=== PATIENT | male | born 1960 | race American Indian/Alaskan Native ===

== ENCOUNTER 2018-06-21 23:13 | Emergency (ER) | payer MEDICARE ==
[2018-06-22 00:33] LABS: Basophils % (Auto) 0.8 % (0.0-1.8); Eosinophils # (Auto) 0.1 K/mm3 (0.0-0.4); Eosinophils % (Auto) 1.9 % (0.0-4.3); Hematocrit 38.2 % (35.5-45.6); Hemoglobin 13.5 gm/dl (11.8-15.2); Lymphocytes # (Auto) 1.2 K/mm3 (1.2-5.4); Lymphocytes % (Auto) 40.9 % (13.4-35.0); Mean Corpuscular HGB Conc 35 % (32-34); Mean Corpuscular Hemoglobin 31 pg (28-32); Mean Corpuscular Volume 87 fl (84-94); Monocytes # (Auto) 0.4 K/mm3 (0.0-0.8); Monocytes % (Auto) 12.3 % (0.0-7.3); Platelet Count 190 K/mm3 (140-440); Red Blood Count 4.42 M/mm3 (3.65-5.03)
[2018-06-22 01:05] LABS: Alanine Aminotransferase 7 units/L (7-56); Albumin 4.7 g/dL (3.9-5); BUN/Creatinine Ratio 11; Blood Urea Nitrogen 9 mg/dL (9-20); Calcium 9.5 mg/dL (8.4-10.2); Hemolysis Index 10
[2018-06-22 03:28] VITALS: BP 140/91
[2018-06-22] MEDS ORDERED: MOTRIN PO ONE (04:00)
[2018-06-22] MEDS ORDERED: DILAUDID IM ONE (04:00)
--- NOTE | 2018-06-22 04:00 | Emergency Department Report ---
ED General Adult HPI - General Chief complaint: Pain General Stated complaint: BACK/RIB PAIN/BONE CANCER Time Seen by Provider: 06/22/18 03:54 Source: patient, RN notes reviewed, old records reviewed Mode of arrival: Ambulatory Limitations: No Limitations - History of Present Illness Initial comments: His is an unfortunate 57-year-old male, unknown to me previously. Has a past medical history of prostate cancer, suggested to be metastatic on a recent bone scan. He also has a history of tobacco and alcohol abuse. He is not currently on medical therapy for his prostate cancer. He has been seen by Dr. Huston of oncology, please see her consultation from 05/03/2018. Patient reports that his current oncologist is Dr. best at [facility]. Impression presents to the ER with complaints of bony rib pain and lower back pain, suggestive of his previous metastatic pain. His pain is sharp, increases with palpation and decreases with rest. He denies fevers, chills, chest pain, shortness of breath, urinary symptoms, bladder or bowel retention/incontinence. Patient had a CT angiogram of the chest performed last month which was negative for pulmonary embolus. -: Gradual Location: back Quality: burning, aching Consistency: intermittent Improves with: medication, rest Worsens with: movement Associated Symptoms: malaise, weakness. denies: confusion, chest pain, cough, diaphoresis, fever/chills, headaches, loss of appetite, nausea/vomiting, shortness of breath, syncope - Related Data Previous Rx's Medication Instructions Recorded Last Taken Type Folic Acid 1 tab PO QDAY #30 tab 06/22/18 Unknown Rx Ibuprofen [Motrin] 600 mg PO Q8H PRN #30 tablet 06/22/18 Unknown Rx Multivitamin Tab [Multiple Vitamin 1 each PO ONCE #30 tablet 06/22/18 Unknown Rx TAB (Theragran)] Thiamine [Vitamin B-1] 100 mg PO QDAY #15 tablet 06/22/18 Unknown Rx amLODIPine [Norvasc] 10 mg PO QDAY #30 tablet 06/22/18 Unknown Rx oxyCODONE /ACETAMINOPHEN [Percocet 1 tab PO Q6HR PRN #15 tablet 06/22/18 Unknown Rx 5/325 mg] Allergies Allergy/AdvReac Type Severity Reaction Status Date / Time No Known Allergies Allergy Verified 06/22/18 00:04 ED Review of Systems ROS: Stated complaint: BACK/RIB PAIN/BONE CANCER Other details as noted in HPI Constitutional: malaise. denies: diaphoresis Eyes: denies: eye discharge ENT: denies: epistaxis Respiratory: denies: cough Cardiovascular: denies: chest pain Gastrointestinal: denies: abdominal pain Genitourinary: denies: dysuria Musculoskeletal: back pain, arthralgia, myalgia Skin: denies: lesions Neurological: weakness Psychiatric: anxiety ED Past Medical Hx - Past Medical History Hx Hypertension: Yes Hx Congestive Heart Failure: No Hx Diabetes: No Hx Asthma: No Hx COPD: No Hx HIV: No Additional medical history: bone CA, prostate CA/2012 - Surgical History Past Surgical History?: No - Social History Smoking Status: Current Every Day Smoker Substance Use Type: Marijuana - Medications Home Medications: Home Medications Medication Instructions Recorded Confirmed Last Taken Type Folic Acid 1 tab PO QDAY #30 tab 06/22/18 Unknown Rx Ibuprofen [Motrin] 600 mg PO Q8H PRN #30 tablet 06/22/18 Unknown Rx Multivitamin Tab [Multiple Vitamin 1 each PO ONCE #30 tablet 06/22/18 Unknown Rx TAB (Theragran)] Thiamine [Vitamin B-1] 100 mg PO QDAY #15 tablet 06/22/18 Unknown Rx amLODIPine [Norvasc] 10 mg PO QDAY #30 tablet 06/22/18 Unknown Rx oxyCODONE /ACETAMINOPHEN [Percocet 1 tab PO Q6HR PRN #15 tablet 06/22/18 Unknown Rx 5/325 mg] ED Physical Exam - General Limitations: No Limitations General appearance: alert, in no apparent distress - Head Head exam: Present: atraumatic, normocephalic - Eye Eye exam: Present: normal appearance, EOMI. Absent: nystagmus - ENT ENT exam: Present: normal exam, normal orophraynx, mucous membranes moist, normal external ear exam - Neck Neck exam: Present: normal inspection, full ROM. Absent: tenderness, meningismus - Respiratory Respiratory exam: Present: normal lung sounds bilaterally, chest wall tenderness. Absent: respiratory distress, wheezes, rales, rhonchi, stridor - Cardiovascular Cardiovascular Exam: Present: regular rate, normal rhythm. Absent: systolic murmur, diastolic murmur, rubs, gallop - GI/Abdominal GI/Abdominal exam: Present: soft, normal bowel sounds. Absent: distended, tenderness, guarding, rebound, rigid, pulsatile mass - Rectal Rectal exam: Present: deferred - Extremities Exam Extremities exam: Present: normal inspection, full ROM, normal capillary refill , other (2+ pulses noted in the bilateral upper, lower extremities. Compartments soft. No long bony tenderness. The pelvis is stable.). Absent: pedal edema, joint swelling, calf tenderness (there is no palpable cord. There is a negative Homans sign.) - Back Exam Back exam: Present: normal inspection, full ROM, paraspinal tenderness, vertebral tenderness. Absent: CVA tenderness (R) - Neurological Exam Neurological exam: Present: alert, oriented X3, CN II-XII intact, normal gait, other (Extraocular movements intact. Tongue midline. No facial droop. Facial sensation intact to light touch in the V1, V2, V3 distribution bilaterally. 5 and 5 strength in 4 extremities.. Sensation is intact to light touch in 4 extremities.). Absent: motor sensory deficit - Psychiatric Psychiatric exam: Present: normal affect, normal mood - Skin Skin exam: Present: warm, dry, intact, normal color. Absent: rash ED Course Vital Signs 06/21/18 06/22/18 06/22/18 23:18 02:12 02:16 Temperature 98.1 F Pulse Rate 72 69 73 Respiratory 16 15 17 Rate Blood Pressure 132/86 145/85 O2 Sat by Pulse 99 99 99 Oximetry 06/22/18 06/22/18 06/22/18 02:30 02:46 03:00 Temperature Pulse Rate 73 77 79 Respiratory 18 14 12 Rate Blood Pressure 140/91 145/85 112/75 O2 Sat by Pulse 99 98 96 Oximetry 06/22/18 03:16 Temperature Pulse Rate 73 Respiratory 13 Rate Blood Pressure 140/91 O2 Sat by Pulse 96 Oximetry ED Medical Decision Making - Lab Data Result diagrams: 06/22/18 00:14 06/22/18 00:14 Vital Signs 06/21/18 06/22/18 06/22/18 23:18 02:12 02:16 Temperature 98.1 F Pulse Rate 72 69 73 Respiratory 16 15 17 Rate Blood Pressure 132/86 145/85 O2 Sat by Pulse 99 99 99 Oximetry 06/22/18 06/22/18 06/22/18 02:30 02:46 03:00 Temperature Pulse Rate 73 77 79 Respiratory 18 14 12 Rate Blood Pressure 140/91 145/85 112/75 O2 Sat by Pulse 99 98 96 Oximetry 06/22/18 03:16 Temperature Pulse Rate 73 Respiratory 13 Rate Blood Pressure 140/91 O2 Sat by Pulse 96 Oximetry Lab Results 06/22/18 06/22/18 Range/Units 00:14 00:14 WBC 3.0 L (4.5-11.0) K/mm3 RBC 4.42 (3.65-5.03) M/mm3 Hgb 13.5 (11.8-15.2) gm/dl Hct 38.2 (35.5-45.6) % MCV 87 (84-94) fl MCH 31 (28-32) pg MCHC 35 H (32-34) % RDW 15.0 (13.2-15.2) % Plt Count 190 (140-440) K/mm3 Lymph % (Auto) 40.9 H (13.4-35.0) % Finney % (Auto) 12.3 H (0.0-7.3) % Eos % (Auto) 1.9 (0.0-4.3) % Baso % (Auto) 0.8 (0.0-1.8) % Lymph # 1.2 (1.2-5.4) K/mm3 Finney # 0.4 (0.0-0.8) K/mm3 Eos # 0.1 (0.0-0.4) K/mm3 Baso # 0.0 (0.0-0.1) K/mm3 Seg Neutrophils % 44.1 (40.0-70.0) % Seg Neutrophils # 1.3 L (1.8-7.7) K/mm3 Sodium 131 L (137-145) mmol/L Potassium 3.7 (3.6-5.0) mmol/L Chloride 92.6 L (98-107) mmol/L Carbon Dioxide 22 (22-30) mmol/L Anion Gap 20 mmol/L BUN 9 (9-20) mg/dL Creatinine 0.8 (0.8-1.5) mg/dL Estimated GFR > 60 ml/min BUN/Creatinine Ratio 11 % Glucose 90 (75-100) mg/dL Calcium 9.5 (8.4-10.2) mg/dL Total Bilirubin 0.40 (0.1-1.2) mg/dL AST 24 (5-40) units/L ALT 7 (7-56) units/L Alkaline Phosphatase 262 H (35-129) units/L Total Protein 7.7 (6.3-8.2) g/dL Albumin 4.7 (3.9-5) g/dL Albumin/Globulin Ratio 1.6 % - Medical Decision Making Differential diagnosis, including but not limited to: Metastatic prostate cancer , cancer pain Assessment and plan: 57-year-old male, recently admitted to this hospital, had extensive workup and evaluation including bone scan which has suggested metastatic prostate cancer. He is afebrile with reassuring vital signs, has chronic leukopenia which appears improved compared to prior values. He does not meet criteria for dressing to the hospital at this time, he appears mostly comfortable in his stretcher, and has unremarkable physical exam with the exception of reproducible musculoskeletal pain. Primary issue appears to be pain control. He is given hydromorphone and ibuprofen for pain. He'll be discharged with pain medication. He'll be instructed to follow-up with outpatient oncology, either with his private physician at [facility] or Dr Huston Critical care attestation.: If time is entered above; I have spent that time in minutes in the direct care of this critically ill patient, excluding procedure time. ED Disposition Clinical Impression: Cancer associated pain Disposition: DC-01 TO HOME OR SELFCARE Is pt being admited?: No Does the pt Need Aspirin: No Condition: Good Instructions: Prostate Cancer (GEN) Additional Instructions: Take the pain medications as needed/directed. Follow up as soon as possible with either your primary care doctor or oncologist for further evaluation and treatment of presumed metastatic prostate cancer. If taking the Percocet for pain, do not combine alcohol, and do not drive or make important decisions. Return to the ER right away with ear pain, worsened pain, migration of pain, fevers, chills, lethargy, irritability, projectile vomiting, change in mental status, confusion, inability to tolerate liquid feeds. Referrals: BLAINE ARRIAGA MD [Primary Care Provider] - 3-5 Days GABRIEL HUSTON MD [Staff Physician] - 3-5 Days
== END 2018-06-22 05:36 | disposition home or self-care (01) ==
LOC: ED 23:13
DX: G89.3 Neoplasm related pain (acute) (chronic) (principal); R07.81 Pleurodynia; M54.5 Low back pain; C61 Malignant neoplasm of prostate; C79.51 Secondary malignant neoplasm of bone; I10 Essential (primary) hypertension; F17.200 Nicotine dependence, unspecified, uncomplicated; F12.10 Cannabis abuse, uncomplicated
CPT/HCPCS: 36415; 80053; 85025; 96372; 99283; J1170

== ENCOUNTER 2019-05-21 20:18 | Observation (INO) | payer MEDICARE ==
--- NOTE | 2019-05-21 21:08 | Emergency Department Report ---
HPI - General Chief Complaint: Recheck/Abnormal Lab/Rx Time Seen by Provider: 05/21/19 20:53 - HPI HPI: 58-year-old -[place] male presents to the emergency department via EMS from [facility] secondary to the report of low hemoglobin and hematocrit. Patient says that he was told his "blood count was about 3." He has a history of prostate cancer with secondary metastasis to the bone and it appears that it has affected his spine. 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 He is able to answer some questions appropriately but is confused about time, and is the president. Overall the patient says that he feels "fine." His primary care physician is listed as Dr. Rosemary Moreno and Dr. Misha Elder. He says that his oncologist is Dr. Corado, but he denies any current chemotherapy or radiation treatments. He allegedly has an appointment with his oncologist this coming Tuesday. Patient says it is 1998 and [place] is currently the president. ED Past Medical Hx - Past Medical History Hx Hypertension: Yes Hx Congestive Heart Failure: No Hx Diabetes: No Hx Asthma: No Hx COPD: No Hx HIV: No Additional medical history: bone CA, prostate CA/2012 - Social History Smoking Status: Never Smoker Substance Use Type: None - Medications Home Medications: Home Medications Medication Instructions Recorded Confirmed Last Taken Type Folic Acid 1 tab PO QDAY #30 tab 06/22/18 Unknown Rx Ibuprofen [Motrin] 600 mg PO Q8H PRN #30 tablet 06/22/18 Unknown Rx Multivitamin Tab [Multiple Vitamin 1 each PO ONCE #30 tablet 06/22/18 Unknown Rx TAB (Theragran)] Thiamine [Vitamin B-1] 100 mg PO QDAY #15 tablet 06/22/18 Unknown Rx amLODIPine [Norvasc] 10 mg PO QDAY #30 tablet 06/22/18 Unknown Rx oxyCODONE /ACETAMINOPHEN [Percocet 1 tab PO Q6HR PRN #15 tablet 06/22/18 Unknown Rx 5/325 mg] ED Review of Systems ROS: Stated complaint: ABNORMAL LABS Other details as noted in HPI Comment: All other systems reviewed and negative Constitutional: denies: chills, fever Eyes: denies: eye pain, vision change ENT: denies: ear pain, throat pain Respiratory: denies: cough, shortness of breath Cardiovascular: denies: chest pain, palpitations Gastrointestinal: denies: abdominal pain, vomiting Genitourinary: denies: dysuria, discharge Musculoskeletal: denies: back pain, arthralgia Skin: denies: rash, lesions Neurological: confusion. denies: headache Physical Exam - Physical Exam Vital Signs: Vital Signs 05/21/19 20:55 Temperature 98.1 F Physical Exam: GENERAL: The patient is well-developed well-nourished. HENT: Normocephalic. Atraumatic. Patient has moist mucous membranes. EYES: Extraocular motions are intact. Pupils equal reactive to light bilate rally. NECK: Supple. Trachea is midline. CHEST/LUNGS: Clear to auscultation. There is no respiratory distress noted. HEART/CARDIOVASCULAR: Regular. There is no tachycardia. There is no murmur. ABDOMEN: Abdomen is soft, nontender. Patient has normal bowel sounds. There is no abdominal distention. SKIN: Patient has some stage I to 2 sacral decubitus ulcers. NEURO: The patient is awake, alert. The patient is cooperative with examination but is confused to the date and the current president. The patient has normal speech. MUSCULOSKELETAL: There is no tenderness to palpation. Chronic lower extremity paraplegia. RECTAL: No gross blood. Stool negative on guaiac testing. ED Course Vital Signs 05/21/19 20:55 Temperature 98.1 F ED Medical Decision Making - Lab Data Result diagrams: 05/21/19 21:12 05/21/19 21:12 - EKG Data -: EKG Interpreted by Il EKG shows normal: sinus rhythm, axis, intervals, QRS complexes, ST-T waves Rate: normal - EKG Data When compared to previous EKG there are: no significant change Interpretation: normal EKG, unchanged when compared t (05/03/18) - Radiology Data Radiology results: report reviewed PROCEDURE: CT HEAD/BRAIN WO CON TECHNIQUE: Computerized tomography of the head was performed without contrast material. CT DOSE LENGTH PRODUCT: 805.4 mGycm HISTORY: Altered Mental Status COMPARISONS: None . FINDINGS: Brain: Brain density appears normal. No evidence of intracranial hemorrhage. No parenchymal hemorrhage, mass lesions or mass effect are seen. No abnormal extra-axial fluid collects or masses are seen. Ventricles: Ventricles are normal size and are midline. Bone Windows: No evidence of skull fracture. There is mild deformity medial wall the right orbit. Small portion of the medial wall is displaced into one of the ethmoid air cells suggesting previous fracture. There is no edematous changes that would suggest an acute fracture. Paranasal sinuses: Mild mucosal thickening visualized posteriorly in the sphenoid sinuses. Visualized paranasal sinuses otherwise are clear. Mastoid air cells: Clear. IMPRESSION: No evidence of acute or focal intracranial abnormality. Mild paranasal sinus disease as described. Mild deformity medial wall right orbit as described above. This document is electronically signed by Merlin Terrazas MD., May 21 2019 10:50:10 PM ET Transcribed By: DOMINIC Dictated By: MERLIN TERRAZAS MD Electronically Authenticated By: MERLIN TERRAZAS MD Signed Date/Time: 05/21/19 2246 - Medical Decision Making This patient was sent in by his half-way after he had some recent blood work that showed severe anemia. This was confirmed here with a hemoglobin of 4.7. It appears normocytic. No obvious source of bleeding. Guaiac negative. Due to the history of prostate and bone cancer, along with his confusion to the date a nd current president, my plan was to do a CT scan of the head to look for metastasis. The patient also had some blood ordered for transfusion. However, at first, the patient was refusing any further imaging, blood transfusion, and basically any further examination or treatment. I spoke with the patient's sister, Patricia, who was able to talk to the patient and convince him to be compliant with further evaluation and treatment, and the patient has been. CT of the head did not show any bleed, shift, mass, ischemia, or any other acute process. 3 units of packed red blood cells up in order to start. Patient will be admitted to the hospital for further evaluation and treatment was excepted f or admission by the hospitalist, Dr. Rosales. - Differential Diagnosis GI bleed, anemia of chronic kidney disease, chemotherapy related Critical Care Time: Yes Critical care time in (mins) excluding proc time.: 35 Critical care attestation.: If time is entered above; I have spent that time in minutes in the direct care of this critically ill patient, excluding procedure time. Critical care time w as spent on this patient during his initial evaluation, multiple re-evaluations, ordering and interpretation of labs and imaging, ordering of blood for transfusion. Multiple discussion with the patient and his family. Critical Care Time: 35 minutes ED Disposition Clinical Impression: Anemia requiring transfusions, Normocytic anemia, History of prostate cancer, History of cancer metastatic to bone, Acute renal insufficiency, Elevated troponin Disposition: OP ADMIT IP TO THIS HOSP Is pt being admited?: Yes Condition: Serious Referrals: ANA MORENO MD [Primary Care Provider] - 3-5 Days Time of Disposition: 23:44
[2019-05-21 21:41] LABS: Basophils % (Auto) 0.9 % (0.0-1.8); Eosinophils % (Auto) 1.1 % (0.0-4.3); Lymphocytes # (Auto) 0.6 K/mm3 (1.2-5.4); Lymphocytes % (Auto) 22.7 % (13.4-35.0); Mean Corpuscular HGB Conc 33 % (32-34); Mean Corpuscular Volume 88 fl (84-94); Monocytes # (Auto) 0.2 K/mm3 (0.0-0.8); Monocytes % (Auto) 6.5 % (0.0-7.3); Platelet Count 100 K/mm3 (140-440); Red Blood Count 1.65 M/mm3 (3.65-5.03)
[2019-05-21 21:43] LABS: Hematocrit 14.5 % (35.5-45.6); Hemoglobin 4.7 gm/dl (11.8-15.2); Red Cell Distribution Width 21.2 % (13.2-15.2)
[2019-05-21 21:45] LABS: INR 1.2 (0.87-1.13)
[2019-05-21 21:46] LABS: Partial Thromboplastin Time 28.2 Sec. (24.2-36.6)
[2019-05-21] MEDS ORDERED: NACL 0.9% 500 ML 500 ML IV ONE (22:08)
[2019-05-21 22:16] LABS: Alanine Aminotransferase 10 units/L (7-56); Albumin 3.7 g/dL (3.9-5); BUN/Creatinine Ratio 14; Blood Urea Nitrogen 24 mg/dL (9-20); Calcium 9.2 mg/dL (8.4-10.2); Hemolysis Index 0
--- NOTE | 2019-05-21 22:51 | Cat Scan Report ---
PROCEDURE: CT HEAD/BRAIN WO CON TECHNIQUE: Computerized tomography of the head was performed without contrast material. CT DOSE LENGTH PRODUCT: 805.4 mGycm HISTORY: Altered Mental Status COMPARISONS: None . FINDINGS: Brain: Brain density appears normal. No evidence of intracranial hemorrhage. No parenchymal hemorr brandan, mass lesions or mass effect are seen. No abnormal extra-axial fluid collects or masses are see n. Ventricles: Ventricles are normal size and are midline. Bone Windows: No evidence of skull fracture. There is mild deformity medial wall the right orbit. Sma ll portion of the medial wall is displaced into one of the ethmoid air cells suggesting previous frac ture. There is no edematous changes that would suggest an acute fracture. Paranasal sinuses: Mild mucosal thickening visualized posteriorly in the sphenoid sinuses. Visualized paranasal sinuses otherwise are clear. Mastoid air cells: Clear. IMPRESSION: No evidence of acute or focal intracranial abnormality. Mild paranasal sinus disease as described. Mild deformity medial wall right orbit as described above. This document is electronically signed by Merlin Pereira MD., May 21 2019 10:50:10 PM ET
--- NOTE | 2019-05-21 23:22 | History and Physical Report ---
<SATISH ROMO - Last Filed: 05/22/19 04:50> History of Present Illness Date of examination: 05/21/19 Date of admission: 05/21/2019 Chief complaint: Low H&H, Extreme tiredness History of present illness: Patient is a 58-year-old male with PMHx of metastatic prostate CA to the bone, (currently on oral chemotherapy, per pt) who was brought to the by EMS from a nursing care facility for low hemoglobin and hematocrit. Patient reports hr feel tired all the time, he states that he has not had an appetite and showed no interest eating the past few days. Pt also complains of right tight pain, he states that he had been taking some medication at the half-way for the pain with minimal relief. Patient reported to the ER physician that his H&H has been very low, In the ER the H&H was repeated which was 4.7 and 14.5, patient reports low energy, change in appetite, he denies fevers, denies headache, denies chills, denies dizziness. Patient was started on blood transfusion and admitted for further follow-up. Past History Past Medical History: other (history of alcohol abuse, prostate CA) Past Surgical History: No surgical history Social history: no significant social history, smoking, alcohol abuse (quit years ago) Family history: no significant family history Medications and Allergies Allergies Allergy/AdvReac Type Severity Reaction Status Date / Time No Known Allergies Allergy Verified 06/22/18 00:04 Home Medications Medication Instructions Recorded Confirmed Last Taken Type Folic Acid 1 tab PO QDAY #30 tab 06/22/18 Unknown Rx Ibuprofen [Motrin] 600 mg PO Q8H PRN #30 tablet 06/22/18 Unknown Rx Multivitamin Tab [Multiple Vitamin 1 each PO ONCE #30 tablet 06/22/18 Unknown Rx TAB (Theragran)] Thiamine [Vitamin B-1] 100 mg PO QDAY #15 tablet 06/22/18 Unknown Rx amLODIPine [Norvasc] 10 mg PO QDAY #30 tablet 06/22/18 Unknown Rx oxyCODONE /ACETAMINOPHEN [Percocet 1 tab PO Q6HR PRN #15 tablet 06/22/18 Unknown Rx 5/325 mg] Review of Systems Musculoskeletal: morning stiffness, muscle cramps Exam - Constitutional Vitals: Temp Pulse Resp BP Pulse Ox 98.1 F 105/60 96 05/21/19 20:55 05/21/19 22:15 05/21/19 21:45 General appearance: Present: mild distress - EENT Eyes: Present: EOM intact ENT: hearing intact - Neck Neck: Present: normal ROM - Respiratory Respiratory effort: normal Respiratory: bilateral: CTA - Cardiovascular Rhythm: regular Heart Sounds: Present: S1 & S2 - Extremities Extremities: no ischemia, No edema Peripheral Pulses: within normal limits - Abdominal General gastrointestinal: Present: deferred Male genitourinary: Present: deferred - Rectal Rectal Exam: deferred - Integumentary Integumentary: Present: warm, dry - Musculoskeletal Musculoskeletal: generalized weakness, other (quadriplegia) - Psychiatric Psychiatric: cooperative Results - Labs CBC & Chem 7: 05/21/19 21:12 05/21/19 21:12 Labs: Laboratory Last Values WBC 2.7 K/mm3 (4.5-11.0) L 05/21/19 21:12 RBC 1.65 M/mm3 (3.65-5.03) L 05/21/19 21:12 Hgb 4.7 gm/dl (11.8-15.2) L* 05/21/19 21:12 Hct 14.5 % (35.5-45.6) L* 05/21/19 21:12 MCV 88 fl (84-94) 05/21/19 21:12 MCH 29 pg (28-32) 05/21/19 21:12 MCHC 33 % (32-34) 05/21/19 21:12 RDW 21.2 % (13.2-15.2) H 05/21/19 21:12 Plt Count 100 K/mm3 (140-440) L 05/21/19 21:12 Lymph % (Auto) 22.7 % (13.4-35.0) 05/21/19 21:12 Nolan % (Auto) 6.5 % (0.0-7.3) 05/21/19 21:12 Eos % (Auto) 1.1 % (0.0-4.3) 05/21/19 21:12 Baso % (Auto) 0.9 % (0.0-1.8) 05/21/19 21:12 Lymph # 0.6 K/mm3 (1.2-5.4) L 05/21/19 21:12 Nolan # 0.2 K/mm3 (0.0-0.8) 05/21/19 21:12 Eos # 0.0 K/mm3 (0.0-0.4) 05/21/19 21:12 Baso # 0.0 K/mm3 (0.0-0.1) 05/21/19 21:12 Seg Neutrophils % 68.8 % (40.0-70.0) 05/21/19 21:12 Seg Neutrophils # 1.8 K/mm3 (1.8-7.7) 05/21/19 21:12 PT 14.9 Sec. (12.2-14.9) 05/21/19 21:12 INR 1.20 (0.87-1.13) H 05/21/19 21:12 APTT 28.2 Sec. (24.2-36.6) 05/21/19 21:12 Sodium 134 mmol/L (137-145) L 05/21/19 21:12 Potassium 4.2 mmol/L (3.6-5.0) 05/21/19 21:12 Chloride 98.4 mmol/L (98-107) 05/21/19 21:12 Carbon Dioxide 22 mmol/L (22-30) 05/21/19 21:12 18 mmol/L 05/21/19 21:12 BUN 24 mg/dL (9-20) H 05/21/19 21:12 1.7 mg/dL (0.8-1.5) H 05/21/19 21:12 Estimated GFR 50 ml/min 05/21/19 21:12 14 % 05/21/19 21:12 Glucose 106 mg/dL (75-100) H 05/21/19 21:12 Calcium 9.2 mg/dL (8.4-10.2) 05/21/19 21:12 0.70 mg/dL (0.1-1.2) 05/21/19 21:12 AST 46 units/L (5-40) H 05/21/19 21:12 ALT 10 units/L (7-56) 05/21/19 21:12 1051 units/L (35-129) H 05/21/19 21:12 < 10.0 umol/L (25-60) L 05/21/19 21:12 0.073 ng/mL (0.00-0.029) H 05/21/19 21:12 6.5 g/dL (6.3-8.2) 05/21/19 21:12 3.7 g/dL (3.9-5) L 05/21/19 21:12 1.3 % 05/21/19 21:12 TSH 5.710 mlU/mL (0.270-4.200) H 05/21/19 21:12 Plasma/Serum Alcohol < 0.01 % (0-0.07) 05/21/19 21:12 Blood Type O POSITIVE 05/21/19 21:16 Antibody Screen Negative 05/21/19 21:16 Crossmatch See Detail 05/21/19 21:16 Assessment and Plan Assessment and plan: 1. Metastatic prostate Ca to bone 2. Acute blood loss anemia 3. Pancytopenia 4. History of spinal compression surgery 5. Functional quadriplegia (due to spinal surgery) 6. CKD/TOÑO Plan: Patient is admitted for blood transfusion Sarted on PRBCs Repeat H&H after blood transfusion Ensure 3 times a day with meals Consult home oncology for evaluation IV fluid for hydration/renal perfusion No DVT prophylaxis due to low H&H Plan was discussed with patient voiced understanding Patient's condition and plan of care discussed with the assessment Advance Directives: Yes Contraindication Mechanical VTE Prophylaxis: Contraindicated Plan of care discussed with patient/family: Yes <JUNIE GILLIAM - Last Filed: 05/22/19 06:39> History of Present Illness Date of admission: 05/21/19 23:29 Medications and Allergies Active Meds: Active Medications Acetaminophen (Tylenol) 650 mg PO Q4H PRN PRN Reason: Pain MILD(1-3)/Fever >100.5/ARZOLA Amlodipine Besylate (Norvasc) 10 mg PO QDAY [facility] Folic Acid (Folvite) 1 mg PO DAILY [facility] Sodium Chloride (Nacl 0.9% 1000 Ml) 1,000 mls @ 75 mls/hr IV DIRECT ADRIAN Last Admin: 05/22/19 04:09 Dose: 75 mls/hr Documented by: Ibuprofen (Ibuprofen) 600 mg PO Q8H PRN PRN Reason: Pain Multivitamins (Theragran Tab) 1 each PO DAILY [facility] Ondansetron HCl (Zofran) 4 mg IV Q8H PRN PRN Reason: Nausea And Vomiting Oxycodone/Acetaminophen (Percocet 5/325) 1 tab PO Q6HR PRN PRN Reason: Pain Sodium Chloride (Sodium Chloride Flush Syringe 10 Ml) 10 ml IV BID [facility] Sodium Chloride (Sodium Chloride Flush Syringe 10 Ml) 10 ml IV PRN PRN PRN Reason: LINE FLUSH Thiamine HCl (Vitamin B-1) 100 mg PO QDAY [facility] Exam - Constitutional Vitals: Temp Pulse Resp BP Pulse Ox 98.5 F 79 18 100/55 96 05/22/19 06:24 05/22/19 06:24 05/22/19 06:24 05/22/19 06:24 05/22/19 06:24 Results - Labs CBC & Chem 7: 05/21/19 21:12 05/21/19 21:12 Labs: Laboratory Last Values WBC 2.7 K/mm3 (4.5-11.0) L 05/21/19 21:12 RBC 1.65 M/mm3 (3.65-5.03) L 05/21/19 21:12 Hgb 4.7 gm/dl (11.8-15.2) L* 05/21/19 21:12 Hct 14.5 % (35.5-45.6) L* 05/21/19 21:12 MCV 88 fl (84-94) 05/21/19 21:12 MCH 29 pg (28-32) 05/21/19 21:12 MCHC 33 % (32-34) 05/21/19 21:12 RDW 21.2 % (13.2-15.2) H 05/21/19 21:12 Plt Count 100 K/mm3 (140-440) L 05/21/19 21:12 Lymph % (Auto) 22.7 % (13.4-35.0) 05/21/19 21:12 Nolan % (Auto) 6.5 % (0.0-7.3) 05/21/19 21:12 Eos % (Auto) 1.1 % (0.0-4.3) 05/21/19 21:12 Baso % (Auto) 0.9 % (0.0-1.8) 05/21/19 21:12 Lymph # 0.6 K/mm3 (1.2-5.4) L 05/21/19 21:12 Nolan # 0.2 K/mm3 (0.0-0.8) 05/21/19 21:12 Eos # 0.0 K/mm3 (0.0-0.4) 05/21/19 21:12 Baso # 0.0 K/mm3 (0.0-0.1) 05/21/19 21:12 Seg Neutrophils % 68.8 % (40.0-70.0) 05/21/19 21:12 Seg Neutrophils # 1.8 K/mm3 (1.8-7.7) 05/21/19 21:12 PT 14.9 Sec. (12.2-14.9) 05/21/19 21:12 INR 1.20 (0.87-1.13) H 05/21/19 21:12 APTT 28.2 Sec. (24.2-36.6) 05/21/19 21:12 Sodium 134 mmol/L (137-145) L 05/21/19 21:12 Potassium 4.2 mmol/L (3.6-5.0) 05/21/19 21:12 Chloride 98.4 mmol/L (98-107) 05/21/19 21:12 Carbon Dioxide 22 mmol/L (22-30) 05/21/19 21:12 18 mmol/L 05/21/19 21:12 BUN 24 mg/dL (9-20) H 05/21/19 21:12 1.7 mg/dL (0.8-1.5) H 05/21/19 21:12 Estimated GFR 50 ml/min 05/21/19 21:12 14 % 05/21/19 21:12 Glucose 106 mg/dL (75-100) H 05/21/19 21:12 Calcium 9.2 mg/dL (8.4-10.2) 05/21/19 21:12 0.70 mg/dL (0.1-1.2) 05/21/19 21:12 AST 46 units/L (5-40) H 05/21/19 21:12 ALT 10 units/L (7-56) 05/21/19 21:12 1051 units/L (35-129) H 05/21/19 21:12 < 10.0 umol/L (25-60) L 05/21/19 21:12 0.073 ng/mL (0.00-0.029) H 05/21/19 21:12 6.5 g/dL (6.3-8.2) 05/21/19 21:12 3.7 g/dL (3.9-5) L 05/21/19 21:12 1.3 % 05/21/19 21:12 TSH 5.710 mlU/mL (0.270-4.200) H 05/21/19 21:12 Plasma/Serum Alcohol < 0.01 % (0-0.07) 05/21/19 21:12 Blood Type O POSITIVE 05/21/19 21:16 Antibody Screen Negative 05/21/19 21:16 Crossmatch See Detail 05/21/19 21:16 Assessment and Plan Assessment and plan: This 58-year-old man with a history of metastatic prostate cancer, quadriplegic, history of cord compression, anemia was sent to the emergency room for a normal hemoglobin found on labs at the half-way. He denies any bleeding, stool is brown with heme-negative, as he is back about cells
[2019-05-21] MEDS ORDERED: SODIUM CHLORIDE FLUSH SYRINGE 10 ML IV PRN (23:24)
[2019-05-21] MEDS ORDERED: TYLENOL PO PRN (23:24)
[2019-05-21] MEDS ORDERED: ZOFRAN IV PRN (23:24)
[2019-05-21] MEDS ORDERED: NACL 0.9% 1000 ML 1,000 ML IV SCH (23:45)
[2019-05-22] MEDS ORDERED: IBUPROFEN PO PRN (04:51)
[2019-05-22 08:57] LABS: Bacteria,Urine 1+ /HPF (Negative); Bilirubin,Urine NEG (Negative); Blood,Urine SM (Negative); Color,Urine Yellow (Yellow); Urobilinogen,Urine < 2.0 mg/dL (<2.0)
[2019-05-22] MEDS ORDERED: NON-FORMULARY (Folic Acid [Folic Acid] 1 TAB) PO SCH (10:00)
[2019-05-22] MEDS: NORVASC PO SCH (10:25)
[2019-05-22] MEDS: FOLVITE PO SCH (10:25)
[2019-05-22] MEDS: SODIUM CHLORIDE FLUSH SYRINGE 10 ML IV SCH ×2 (10:27→22:50)
[2019-05-22] MEDS: THERAGRAN Tab PO SCH (10:29)
[2019-05-22] MEDS: VITAMIN B-1 PO SCH (10:29)
[2019-05-22] MEDS: PERCOCET 5/325 PO PRN (12:35)
[2019-05-22 15:17] LABS: Basophils % (Auto) 1.3 % (0.0-1.8); Eosinophils % (Auto) 1.1 % (0.0-4.3); Hematocrit 22.2 % (35.5-45.6); Hemoglobin 7.7 gm/dl (11.8-15.2); Lymphocytes # (Auto) 0.8 K/mm3 (1.2-5.4); Lymphocytes % (Auto) 26.2 % (13.4-35.0); Mean Corpuscular HGB Conc 35 % (32-34); Mean Corpuscular Volume 87 fl (84-94); Monocytes # (Auto) 0.3 K/mm3 (0.0-0.8); Monocytes % (Auto) 9.6 % (0.0-7.3); Red Blood Count 2.56 M/mm3 (3.65-5.03); Red Cell Distribution Width 17.4 % (13.2-15.2)
[2019-05-22 15:30] LABS: Platelet Count 96 K/mm3 (140-440)
[2019-05-22 20:12] LABS: Chol/HDL Ratio 10.85 %; HDL Cholesterol 20 mg/dL (40-59); LDL Cholesterol,Direct TNR mg/dL (50-130)
[2019-05-23] MEDS: PERCOCET 5/325 PO PRN ×2 (00:19→08:39)
[2019-05-23] MEDS: THERAGRAN Tab PO SCH (09:14)
[2019-05-23] MEDS: NORVASC PO SCH (09:14)
[2019-05-23] MEDS: FOLVITE PO SCH (09:14)
[2019-05-23] MEDS: VITAMIN B-1 PO SCH (09:14)
[2019-05-23] MEDS: SODIUM CHLORIDE FLUSH SYRINGE 10 ML IV SCH (09:15)
--- NOTE | 2019-05-23 12:31 | Progress Note ---
Assessment and Plan 1. Metastatic prostate Ca to bone 2. Acute blood loss anemia 3. Pancytopenia 4. History of spinal compression surgery 5. Functional quadriplegia (due to spinal surgery) 6. CKD/TOÑO Plan: Patient is admitted for blood transfusion Transfused Repeat H&H after blood transfusion Ensure 3 times a day with meals Consult oncology for evaluation IV fluid for hydration/renal perfusion No DVT prophylaxis due to low platelet count Plan was discussed with patient voiced understanding Patient's condition and plan of care discussed with the assessment Advance Directives: Yes Contraindication Mechanical VTE Prophylaxis: Contraindicated Plan of care discussed with patient/family: Yes Subjective Date of service: 05/22/19 Objective - Constitutional Vitals: Vital Signs - 12hr 05/23/19 05/23/19 04:00 04:49 Temperature 98.6 F Pulse Rate 89 Respiratory 18 16 Rate Blood Pressure 107/63 O2 Sat by Pulse 98 Oximetry General appearance: Present: no acute distress, well-nourished - EENT Eyes: PERRL, EOM intact ENT: hearing intact, clear oral mucosa Ears: bilateral: normal - Neck Neck: supple, normal ROM - Respiratory Respiratory effort: normal Respiratory: bilateral: CTA - Breasts Breasts: normal - Cardiovascular Rhythm: regular Heart Sounds: Present: S1 & S2. Absent: gallop, rub Extremities: pulses intact, No edema, normal color, Full ROM - Gastrointestinal General gastrointestinal: Present: soft, non-tender, non-distended, normal bowel sounds - Genitourinary Male genitourinary: normal - Integumentary Integumentary: clear, warm, dry - Musculoskeletal Musculoskeletal: 1, strength equal bilaterally - Neurologic Neurologic: moves all extremities - Psychiatric Psychiatric: memory intact, appropriate mood/affect, intact judgment & insight - Labs CBC & Chem 7: 05/22/19 14:59 05/21/19 21:12 Labs: Abnormal lab results 05/21/19 05/22/19 Range/Units 21:12 14:59 WBC 3.1 L (4.5-11.0) K/mm3 RBC 2.56 L (3.65-5.03) M/mm3 Hgb 7.7 L D (11.8-15.2) gm/dl Hct 22.2 L D (35.5-45.6) % MCHC 35 H (32-34) % RDW 17.4 H (13.2-15.2) % Plt Count 96 L (140-440) K/mm3 Peach % (Auto) 9.6 H (0.0-7.3) % Lymph # 0.8 L (1.2-5.4) K/mm3 Triglycerides 502 H (2-149) mg/dL Cholesterol 217 H (50-199) mg/dL HDL Cholesterol 20 L (40-59) mg/dL
--- NOTE | 2019-05-23 12:40 | Discharge Summary ---
Providers - Providers Date of Admission: 05/21/19 23:29 Date of discharge: 05/23/19 Attending physician: LISBET OSMAN 05/22/19 11:33 Consult to Wound/ET Nurse [CONS] Routine Reason For Exam: wound eval Primary care physician: ANA MORENO Hospitalization Condition: Serious Hospital course: Patient is a 58-year-old male with PMHx of metastatic prostate CA to the bone, (currently on oral chemotherapy, per pt) who was brought to the by EMS from a nursing care facility for low hemoglobin and hematocrit.In the ER the H&H was repeated which was 4.7 and 14.5, patient reports low energy, Change in appetite, he denies fevers, denies headache, denies chills, denies dizziness. Patient feels tired all the time, he states that he has not had an appetite and showed no interest eating the past few days. Past History Past Medical History: other (history of alcohol abuse, prostate CA) Past Surgical History: No surgical history Social history: no significant social history, smoking, alcohol abuse (quit years ago) Family history: no significant family history 1. Metastatic prostate Ca to bone--Palliative care--Sees oncologist as outpatient 2. Acute blood loss anemia---Transfused 3. Pancytopenia--Mild 4. History of spinal compression surgery 5. Functional quadriplegia (due to spinal surgery)---PT as outpatient 6. CKD/TOÑO Plan: Patient is admitted for blood transfusion Sarted on PRBCs---transfused Repeat H&H ---7.7/22.2 Ensure 3 times a day with meals Consult home oncology for evaluation IV fluid for hydration/renal perfusion No DVT prophylaxis due to low H&H Plan was discussed with patient voiced understanding Patient's condition and plan of care discussed with the assessment Advance Directives: Yes Contraindication Mechanical VTE Prophylaxis: Contraindicated Plan of care discussed with patient/family: Yes Disposition: DC/[place]-03 [facility] CERT Core Measure Documentation - Palliative Care Palliative Care/ Comfort Measures: Not Applicable - Core Measures Any of the following diagnoses?: none Exam - Constitutional Vitals: Temp Pulse Resp BP Pulse Ox 98.6 F 89 16 107/63 98 05/23/19 04:49 05/23/19 04:49 05/23/19 04:49 05/23/19 04:49 05/23/19 04:49 General appearance: Present: no acute distress, well-nourished - EENT Eyes: Present: PERRL ENT: hearing intact, clear oral mucosa - Neck Neck: Present: supple, normal ROM - Respiratory Respiratory effort: normal Respiratory: bilateral: CTA - Cardiovascular Heart rate: 78 Rhythm: regular Heart Sounds: Present: S1 & S2. Absent: rub, click - Extremities Extremities: no ischemia, pulses intact, pulses symmetrical, No edema Peripheral Pulses: within normal limits - Abdominal General gastrointestinal: Present: soft, non-tender, non-distended, normal bowel sounds Male genitourinary: Present: normal - Rectal Rectal Exam: deferred - Integumentary Integumentary: Present: clear, warm, dry - Musculoskeletal Musculoskeletal: gait normal, strength equal bilaterally - Psychiatric Psychiatric: appropriate mood/affect, intact judgment & insight - Neurologic Neurologic: CNII-XII intact, moves all extremities Plan Weight Bearing Status: Weight Bear as Tolerated Diet: low fat, low cholesterol, low salt Follow up with: ANA MORENO MD [Primary Care Provider] - 3-5 Days
[2019-05-23] MEDS ORDERED: DILAUDID IV PRN (12:48)
[2019-05-23 13:28] VITALS: BP 117/71
== END 2019-05-23 15:57 ==
LOC: ED 20:18 → 3A 23:29
PROVIDERS: ADMIT Internal Medicine; ATTEND Internal Medicine
DX: C79.51 Secondary malignant neoplasm of bone (principal); C61 Malignant neoplasm of prostate; D62 Acute posthemorrhagic anemia; N18.9 Chronic kidney disease, unspecified; N17.9 Acute kidney failure, unspecified; R53.2 Functional quadriplegia; Z79.899 Other long term (current) drug therapy
CPT/HCPCS: 36415; 36430; 70450; 80053; 80061; 81001; 82140; 84443; 84484; 85014; 85018; 85025; 85610; 85730; 86850; 86900; 86901; 86920; 93005; 93010; 96374; 99291; G0378; G0480; J1170; J7030; J7040; P9040; 80320

== ENCOUNTER 2019-06-06 13:37 | Inpatient (IN) | payer MEDICARE ==
[2019-06-06 15:10] LABS: Basophils % (Auto) 0.6 % (0.0-1.8); Eosinophils % (Auto) 0.7 % (0.0-4.3); Lymphocytes # (Auto) 0.7 K/mm3 (1.2-5.4); Lymphocytes % (Auto) 17.5 % (13.4-35.0); Mean Corpuscular HGB Conc 34 % (32-34); Mean Corpuscular Volume 88 fl (84-94); Monocytes # (Auto) 0.2 K/mm3 (0.0-0.8); Monocytes % (Auto) 5.3 % (0.0-7.3); Red Blood Count 1.82 M/mm3 (3.65-5.03); Red Cell Distribution Width 17.6 % (13.2-15.2)
[2019-06-06 15:11] LABS: Hematocrit 15.9 % (35.5-45.6); Hemoglobin 5.4 gm/dl (11.8-15.2); Platelet Count 53 K/mm3 (140-440)
[2019-06-06] MEDS ORDERED: NACL 0.9% 500 ML 500 ML IV ONE (15:14)
[2019-06-06 15:19] LABS: INR 1.17 (0.87-1.13)
[2019-06-06] MEDS ORDERED: NACL 0.9% 1000 ML 1,000 ML IV ONE (15:19)
--- NOTE | 2019-06-06 15:19 | Emergency Department Report ---
HPI - General Chief Complaint: Recheck/Abnormal Lab/Rx Time Seen by Provider: 06/06/19 14:29 - HPI HPI: 58-year-old -[place] male presents to the emergency department from his [facility] half-way for evaluation of anemia and requiring a blood tr ansfusion. The patient has a history of prostate cancer with bony metastasis and a history of cord compression causing some functional quadriplegia. He also has a history of pancytopenia. The patient was recently seen by his oncologist, Dr. Corado, and a recent office note from 2 days ago was sent in with the patient. It appears that the oncology recommendations now include hospice care but the patient is not currently hospice. The recommendation for blood transfusion was made to the [facility] primary care physician, Dr. Cantu, who checked a recent hemoglobin from yesterday and it came back at 5.8. Patient denies any rectal bleeding or any gross bleeding at this time. ED Past Medical Hx - Past Medical History Hx Hypertension: Yes Hx Congestive Heart Failure: No Hx Diabetes: No Hx Asthma: No Hx COPD: No Hx HIV: No Additional medical history: bone CA, prostate CA/2012 - Social History Smoking Status: Never Smoker Substance Use Type: None - Medications Home Medications: Home Medications Medication Instructions Recorded Confirmed Last Taken Type Multivitamin Tab [Multiple Vitamin 1 each PO ONCE #30 tablet 06/22/18 06/06/19 Unknown Rx TAB (Theragran)] Ibuprofen [Motrin 600 MG tab] 600 mg PO Q8H PRN tablet 05/23/19 06/06/19 Unknown Rx Thiamine [Vitamin B-1] 100 mg PO QDAY tablet 05/23/19 06/06/19 Unknown Rx amLODIPine [Norvasc] 10 mg PO QDAY tablet 05/23/19 06/06/19 Unknown Rx Ascorbic Acid [Vitamin C] 500 mg PO QDAY 06/06/19 06/06/19 Unknown History Bisacodyl [Dulcolax suppos] 10 mg [place] QDAY PRN 06/06/19 06/06/19 Unknown History Cholecalciferol (Vitamin D3) 50,000 unit PO QWEEK 06/06/19 06/06/19 Unknown History [Vitamin D3 50,000UNIT CAP] Cyclobenzaprine HCl [Flexeril 5 MG 5 mg PO Q12H PRN 06/06/19 06/06/19 Unknown History TAB] Diclofenac 1% [Diclofenac 1% 4 gm TP QID MDD 32 grams 06/06/19 06/06/19 Unknown History topical gel] Docusate Sodium [Colace] 100 mg PO BID 06/06/19 06/06/19 Unknown History Ferrous Sulfate [Iron 325 MG] 325 mg PO TID 06/06/19 06/06/19 Unknown History Folic Acid 0.4 mg PO QDAY 06/06/19 06/06/19 Unknown History Gabapentin [Neurontin] 900 mg PO Q8H 06/06/19 06/06/19 Unknown History Morphine Sulfate [Morphine Sulfate 30 mg PO Q4H PRN 06/06/19 06/06/19 Unknown History IR] Polyethylene Glycol 3350 [Miralax 17 gm PO QDAY 06/06/19 06/06/19 Unknown History 3350] Sennosides Tab [Senokot] 17.2 mg PO QDAY 06/06/19 06/06/19 Unknown History predniSONE [Deltasone] 5 mg PO QDAY 06/06/19 06/06/19 Unknown History ED Review of Systems ROS: Stated complaint: ABNORMAL LABS Other details as noted in HPI Constitutional: weakness. denies: fever Eyes: denies: eye pain, vision change ENT: denies: ear pain, throat pain Respiratory: denies: cough, shortness of breath Cardiovascular: denies: chest pain, palpitations Gastrointestinal: denies: abdominal pain, vomiting Genitourinary: denies: dysuria, discharge Musculoskeletal: arthralgia, myalgia Skin: denies: rash, lesions Neurological: denies: headache, numbness Physical Exam - Physical Exam Vital Signs: Vital Signs 06/06/19 14:43 Temperature 97.8 F Pulse Rate 86 Respiratory 19 Rate Blood Pressure 98/54 [Left] O2 Sat by Pulse 99 Oximetry Physical Exam: GENERAL: The patient is well-developed well-nourished. HENT: Normocephalic. Atraumatic. Patient has moist mucous membranes. EYES: Extraocular motions are intact. Pupils equal reactive to light bilater ally. Pale conjunctiva. NECK: Supple. Trachea is midline. CHEST/LUNGS: Clear to auscultation. There is no respiratory distress noted. HEART/CARDIOVASCULAR: Regular. There is no tachycardia. There is no murmur. ABDOMEN: Abdomen is soft, nontender. Patient has normal bowel sounds. There is no abdominal distention. SKIN: Skin is warm and dry. NEURO: The patient is awake, alert, and oriented. The patient is cooperative. Chronic quadriplegia although patient can move some of his upper extremities. The patient has normal speech. MUSCULOSKELETAL: There is no tenderness or deformity. There is no evidence of acute injury. ED Course Vital Signs 06/06/19 14:43 Temperature 97.8 F Pulse Rate 86 Respiratory 19 Rate Blood Pressure 98/54 [Left] O2 Sat by Pulse 99 Oximetry ED Medical Decision Making - Lab Data Result diagrams: 06/06/19 14:43 06/06/19 14:43 - Medical Decision Making This patient was sent in for evaluation of anemia, most likely requiring transfusion. His hemoglobin did come back at 5.4. Patient denies any gross bleeding and has a history of this recurrent anemia. 2 units of leukocyte reduced packed red blood cells were ordered for transfusion. Patient will be admitted to hospital for further evaluation and treatment and was accepted for admission by the hospitalist, Dr. Geronimo. - Differential Diagnosis microcytic anemia, iron deficiency, blood loss anemia, malignancy Critical Care Time: Yes Critical care time in (mins) excluding proc time.: 31 Critical care attestation.: If time is entered above; I have spent that time in minutes in the direct care of this critically ill patient, excluding procedure time. Critical care time was spent on this patient and during his initial evaluation, multiple re- evaluations, ordering and interpretation of labs, ordering of blood products for transfusion. Critical Care Time: 31 minutes ED Disposition Clinical Impression: Anemia requiring transfusions, Normocytic anemia, History of cancer metastatic to bone, History of prostate cancer Disposition: OP ADMIT IP TO THIS HOSP Is pt being admited?: Yes Condition: Fair Time of Disposition: 18:48
[2019-06-06 15:20] LABS: Partial Thromboplastin Time 41.3 Sec. (24.2-36.6)
[2019-06-06 15:23] LABS: BUN/Creatinine Ratio 15; Blood Urea Nitrogen 15 mg/dL (9-20); Calcium 8.2 mg/dL (8.4-10.2)
[2019-06-06 15:24] LABS: Alanine Aminotransferase 33 units/L (7-56); Albumin 3.4 g/dL (3.9-5); Hemolysis Index 1
--- NOTE | 2019-06-06 15:27 | History and Physical Report ---
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 Pt states that he feels weak. Pt seen and evaluated at [facility] and found to have hgb of 5.8. EMS notified and patient transported to [facility]. Pt seen and evaluated in ED and found to have symptomatic anemia suspected secondary to bone marrow infiltration secondary to prostate cancer. Pt denies fever, chills, CP, Palpitations, productive cough, skin rash, recent ill contacts. Pt admitted to medical floor. Pt initiated on PRBC transfus ion in ED. Pt found to have suprapubic tenderness consistent with UTI. Urinalysis pending at time of admission. Pt initiated on empiric antibiotic therapy. Past History Past Medical History: cancer, hypertension Past Surgical History: No surgical history, Other (reviewed) Social history: alcohol abuse Family history: hypertension Medications and Allergies Allergies Allergy/AdvReac Type Severity Reaction Status Date / Time No Known Allergies Allergy Verified 06/22/18 00:04 Home Medications Medication Instructions Recorded Confirmed Last Taken Type Multivitamin Tab [Multiple Vitamin 1 each PO ONCE #30 tablet 06/22/18 06/06/19 Unknown Rx TAB (Theragran)] Ibuprofen [Motrin 600 MG tab] 600 mg PO Q8H PRN tablet 05/23/19 06/06/19 Unknown Rx Thiamine [Vitamin B-1] 100 mg PO QDAY tablet 05/23/19 06/06/19 Unknown Rx amLODIPine [Norvasc] 10 mg PO QDAY tablet 05/23/19 06/06/19 Unknown Rx Ascorbic Acid [Vitamin C] 500 mg PO QDAY 06/06/19 06/06/19 Unknown History Bisacodyl [Dulcolax suppos] 10 mg ND QDAY PRN 06/06/19 06/06/19 Unknown History Cholecalciferol (Vitamin D3) 50,000 unit PO QWEEK 06/06/19 06/06/19 Unknown History [Vitamin D3 50,000UNIT CAP] Cyclobenzaprine HCl [Flexeril 5 MG 5 mg PO Q12H PRN 06/06/19 06/06/19 Unknown History TAB] Diclofenac 1% [Diclofenac 1% 4 gm TP QID MDD 32 grams 06/06/19 06/06/19 Unknown History topical gel] Docusate Sodium [Colace] 100 mg PO BID 06/06/19 06/06/19 Unknown History Ferrous Sulfate [Iron 325 MG] 325 mg PO TID 06/06/19 06/06/19 Unknown History Folic Acid 0.4 mg PO QDAY 06/06/19 06/06/19 Unknown History Gabapentin [Neurontin] 900 mg PO Q8H 06/06/19 06/06/19 Unknown History Morphine Sulfate [Morphine Sulfate 30 mg PO Q4H PRN 06/06/19 06/06/19 Unknown History IR] Polyethylene Glycol 3350 [Miralax 17 gm PO QDAY 06/06/19 06/06/19 Unknown History 3350] Sennosides Tab [Senokot] 17.2 mg PO QDAY 06/06/19 06/06/19 Unknown History predniSONE [Deltasone] 5 mg PO QDAY 06/06/19 06/06/19 Unknown History Active Meds: Active Medications Sodium Chloride (Nacl 0.9% 1000 Ml) 1,000 mls @ 999 mls/hr IV BOLUS ONE Stop: 06/06/19 16:19 Review of Systems Constitutional: weakness, no weight loss, no weight gain, no fever, no chills Ears, nose, mouth and throat: no ear pain, no ear discharge, no tinnitis, no decreased hearing, no nose pain Cardiovascular: no chest pain, no orthopnea, no palpitations, no rapid/irregular heart beat, no edema Respiratory: no cough, no cough with sputum, no excessive sputum, no hemoptysis, no shortness of breath Gastrointestinal: no nausea, no vomiting, no diarrhea, no constipation, no change in bowel habits Genitourinary Male: no hematuria, no flank pain, no discharge, no urinary frequency, no urinary hesitancy Rectal: no pain, no incontinence, no bleeding Musculoskeletal: no neck stiffness, no neck pain, no shooting arm pain, no arm numbness/tingling, no low back pain Integumentary: no rash, no pruritis, no redness, no sores Neurological: no transient paralysis, no paralysis, no weakness, no parathesias, no numbness, no tingling, no seizures, no syncope Psychiatric: no anxiety, no memory loss, no change in sleep habits, no sleep disturbances, no insomnia, no hypersomnia, no change in libido Endocrine: no cold intolerance, no heat intolerance, no excessive thirst, no polydipsia Hematologic/Lymphatic: no easy bruising, no easy bleeding Allergic/Immunologic: no urticaria, no allergic rhinitis, no wheezing Exam - Constitutional Vitals: Temp Pulse Resp BP Pulse Ox 97.8 F 86 19 98/54 99 06/06/19 14:43 06/06/19 14:43 06/06/19 14:43 06/06/19 14:43 06/06/19 14:43 General appearance: Present: mild distress - EENT Eyes: Present: PERRL ENT: hearing intact, clear oral mucosa - Neck Neck: Present: supple, normal ROM - Respiratory Respiratory effort: normal Respiratory: bilateral: CTA - Cardiovascular Heart Sounds: Present: S1 & S2. Absent: rub, click - Extremities Extremities: pulses symmetrical, No edema Peripheral Pulses: within normal limits - Abdominal General gastrointestinal: Present: soft, non-tender, non-distended, normal bowel sounds Male genitourinary: Present: normal - Integumentary Integumentary: Present: clear, warm, dry - Musculoskeletal Musculoskeletal: generalized weakness - Psychiatric Psychiatric: appropriate mood/affect, intact judgment & insight - Neurologic Neurologic: CNII-XII intact, moves all extremities, no gait normal Results - Labs CBC & Chem 7: 06/06/19 14:43 06/06/19 14:43 Labs: Abnormal lab results 06/06/19 06/06/19 06/06/19 Range/Units 14:43 14:43 14:43 WBC 3.8 L (4.5-11.0) K/mm3 RBC 1.82 L (3.65-5.03) M/mm3 Hgb 5.4 L* (11.8-15.2) gm/dl Hct 15.9 L* (35.5-45.6) % RDW 17.6 H (13.2-15.2) % Plt Count 53 L (140-440) K/mm3 Lymph # 0.7 L (1.2-5.4) K/mm3 Seg Neutrophils % 75.9 H (40.0-70.0) % INR 1.17 H (0.87-1.13) APTT 41.3 H (24.2-36.6) Sec. Sodium 135 L (137-145) mmol/L Potassium 3.5 L (3.6-5.0) mmol/L Calcium 8.2 L (8.4-10.2) mg/dL AST 76 H (5-40) units/L Alkaline Phosphatase 957 H (35-129) units/L Total Protein 6.1 L (6.3-8.2) g/dL Albumin 3.4 L (3.9-5) g/dL Assessment and Plan - Patient Problems (1) Anemia requiring transfusions Current Visit: Yes Status: Acute Plan to address problem: PRBC transfusion, supportive care (2) Alcohol dependence syndrome Current Visit: Yes Status: Acute Qualifiers: Substance use status: uncomplicated Qualified Code(s): F10.20 - Alcohol dependence, uncomplicated Plan to address problem: thiamine, folic acid, multivitamin daily (3) History of cancer metastatic to bone Current Visit: Yes Status: Acute Plan to address problem: Pain control, continue Morphine Sulfate, bowel regimen. (4) DVT prophylaxis Current Visit: Yes Status: Acute Plan to address problem: SCD to BLE while in bed,
[2019-06-06] MEDS ORDERED: SODIUM CHLORIDE FLUSH SYRINGE 10 ML IV PRN (15:39)
[2019-06-06] MEDS ORDERED: TYLENOL PO PRN (15:39)
[2019-06-06] MEDS ORDERED: ZOFRAN IV PRN (15:39)
[2019-06-06] MEDS ORDERED: MORPHINE IV PRN (15:39)
[2019-06-06] MEDS ORDERED: PROVENTIL IH PRN (15:39)
[2019-06-06] MEDS ORDERED: IBUPROFEN PO PRN ×2 (15:42→20:31)
[2019-06-06] MEDS ORDERED: BENADRYL IV SCH (15:43)
[2019-06-06] MEDS ORDERED: PERCOCET 5/325 ONE (16:24)
[2019-06-06] MEDS: PERCOCET 5/325 PO PRN (16:25)
[2019-06-06] MEDS: NACL 0.9% 1000 ML 1,000 ML IV SCH (17:01)
[2019-06-06] MEDS ORDERED: DULCOLAX PR PRN (20:31)
[2019-06-06] MEDS ORDERED: NON-FORMULARY (Cyclobenzaprine Hcl [Flexeril 5 Mg Tab] 5 MG) PO PRN (20:31)
[2019-06-06] MEDS ORDERED: NON-FORMULARY (Gabapentin [Neurontin] 900 MG) PO SCH (20:45)
[2019-06-06] MEDS ORDERED: FLEXERIL PO PRN (20:48)
[2019-06-06] MEDS: ROCEPHIN/NS 1 GM/50 ML 1 GM/50 ML BAG IV SCH (21:46)
[2019-06-06] MEDS: DICLOFENAC 1% TP SCH (21:47)
[2019-06-06] MEDS: COLACE PO SCH (21:48)
[2019-06-06] MEDS: SODIUM CHLORIDE FLUSH SYRINGE 10 ML IV SCH (21:50)
[2019-06-06] MEDS: NEURONTIN PO SCH (21:51)
[2019-06-07 01:59] LABS: Bilirubin,Urine NEG (Negative); Color,Urine Yellow (Yellow)
[2019-06-07 02:00] LABS: Blood,Urine NEG (Negative); Mucus,Urine FEW /HPF; WBC,Urine < 1.0 /HPF (0.0-6.0)
[2019-06-07] MEDS: NACL 0.9% 1000 ML 1,000 ML IV SCH ×2 (02:23→17:11)
[2019-06-07 06:09] LABS: Hemoglobin 6.8 gm/dl (11.8-15.2); Mean Corpuscular HGB Conc 35 % (32-34); Mean Corpuscular Volume 86 fl (84-94); Red Blood Count 2.26 M/mm3 (3.65-5.03); Red Cell Distribution Width 17.1 % (13.2-15.2)
[2019-06-07 06:30] LABS: Alanine Aminotransferase 24 units/L (7-56); Albumin 2.9 g/dL (3.9-5); BUN/Creatinine Ratio 14; Blood Urea Nitrogen 13 mg/dL (9-20); Calcium 8.4 mg/dL (8.4-10.2); Hemolysis Index 0
[2019-06-07] MEDS: NEURONTIN PO SCH ×3 (06:34→21:52)
[2019-06-07 06:41] LABS: Platelet Count 51 K/mm3 (140-440)
[2019-06-07 06:43] LABS: Hematocrit 19.6 % (35.5-45.6)
[2019-06-07] MEDS ORDERED: NACL 0.9% 500 ML 500 ML IV NR (07:11)
[2019-06-07] MEDS ORDERED: K-DUR PO NR (07:48)
--- NOTE | 2019-06-07 07:48 | Progress Note ---
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 Pt states that he feels weak. Pt seen and evaluated at [facility] and found to have hgb of 5.8. EMS notified and patient transported to [facility]. Pt seen and evaluated in ED and found to have symptomatic anemia suspected secondary to bone marrow infiltration secondary to prostate cancer. Pt denies fever, chills, CP, Palpitations, productive cough, skin rash, recent ill contacts. Pt admitted to medical floor. Pt initiated on PRBC transfusion in ED. Pt found to have suprapubic tenderness consistent with UTI. Urinalysis pending at time of admission. Pt initiated on empiric antibiotic therapy. Past History Past Medical History: cancer, hypertension Anemia requiring transfusions PRBC transfusion, supportive care Alcohol dependence syndrome thiamine, folic acid, multivitamin daily History of cancer metastatic to bone Pain control, continue Morphine Sulfate, bowel regimen. DVT prophylaxis SCD to BLE while in bed, History Interval history: Review of systems Constitutional: No fevers, no malaise, no joint pains CVS: No chest pain, no orthopnea, no dyspnea on exertion, no pedal edema GI: No abdominal pain, no diarrhea, no vomiting, no constipation Respiratory: no wheezing, no coughing Hospitalist Physical - Physical exam Narrative exam: General.: Appears well, no distress, nontoxic HEENT: Moist mucous membranes, extraocular muscles intact, no lymphadenopathy Neck: supple Cardiac: S1-S2 heard Lungs: clear to auscultation bilaterally Abdomen: soft , nontender, nondistended, bowel sounds positive Extremities: no edema clubbing or cyanosis Skin: no rash or lesions Neurologic: no gross focal deficits Psych: calm, and cooperative - Constitutional Vitals: Temp Pulse Resp BP Pulse Ox 98.4 F 96 H 18 103/64 94 06/07/19 05:33 06/07/19 05:33 06/07/19 06:00 06/07/19 05:33 06/06/19 23:19 General appearance: Present: mild distress Results - Labs CBC & Chem 7: 06/08/19 04:25 06/07/19 05:05 Labs: Laboratory Last Values WBC 4.1 K/mm3 (4.5-11.0) L 06/07/19 05:05 RBC 2.26 M/mm3 (3.65-5.03) L 06/07/19 05:05 Hgb 6.8 gm/dl (11.8-15.2) L 06/07/19 05:05 Hct 19.6 % (35.5-45.6) L* 06/07/19 05:05 MCV 86 fl (84-94) 06/07/19 05:05 MCH 30 pg (28-32) 06/07/19 05:05 MCHC 35 % (32-34) H 06/07/19 05:05 RDW 17.1 % (13.2-15.2) H 06/07/19 05:05 Plt Count 51 K/mm3 (140-440) L 06/07/19 05:05 Lymph % (Auto) 17.5 % (13.4-35.0) 06/06/19 14:43 [place] % (Auto) 5.3 % (0.0-7.3) 06/06/19 14:43 Eos % (Auto) 0.7 % (0.0-4.3) 06/06/19 14:43 Baso % (Auto) 0.6 % (0.0-1.8) 06/06/19 14:43 Lymph # 0.7 K/mm3 (1.2-5.4) L 06/06/19 14:43 [place] # 0.2 K/mm3 (0.0-0.8) 06/06/19 14:43 Eos # 0.0 K/mm3 (0.0-0.4) 06/06/19 14:43 Baso # 0.0 K/mm3 (0.0-0.1) 06/06/19 14:43 Seg Neutrophils % 75.9 % (40.0-70.0) H 06/06/19 14:43 Seg Neutrophils # 2.9 K/mm3 (1.8-7.7) 06/06/19 14:43 PT 14.6 Sec. (12.2-14.9) 06/06/19 14:43 INR 1.17 (0.87-1.13) H 06/06/19 14:43 APTT 41.3 Sec. (24.2-36.6) H 06/06/19 14:43 Sodium 135 mmol/L (137-145) L 06/07/19 05:05 Potassium 3.2 mmol/L (3.6-5.0) L 06/07/19 05:05 Chloride 102.2 mmol/L (98-107) 06/07/19 05:05 Carbon Dioxide 21 mmol/L (22-30) L 06/07/19 05:05 15 mmol/L 06/07/19 05:05 BUN 13 mg/dL (9-20) 06/07/19 05:05 0.9 mg/dL (0.8-1.5) 06/07/19 05:05 Estimated GFR > 60 ml/min 06/07/19 05:05 14 % 06/07/19 05:05 Glucose 89 mg/dL (75-100) 06/07/19 05:05 Calcium 8.4 mg/dL (8.4-10.2) 06/07/19 05:05 1.00 mg/dL (0.1-1.2) 06/07/19 05:05 AST 48 units/L (5-40) H 06/07/19 05:05 ALT 24 units/L (7-56) 06/07/19 05:05 868 units/L (35-129) H 06/07/19 05:05 5.5 g/dL (6.3-8.2) L 06/07/19 05:05 2.9 g/dL (3.9-5) L 06/07/19 05:05 1.1 % 06/07/19 05:05 Yellow (Yellow) 06/07/19 00:10 Slightly-cloudy (Clear) 06/07/19 00:10 5.0 (5.0-7.0) 06/07/19 00:10 Ur Specific [place] 1.016 (1.003-1.030) 06/07/19 00:10 30 mg/dl mg/dL (Negative) 06/07/19 00:10 Neg mg/dL (Negative) 06/07/19 00:10 Neg mg/dL (Negative) 06/07/19 00:10 Neg (Negative) 06/07/19 00:10 Neg (Negative) 06/07/19 00:10 Neg (Negative) 06/07/19 00:10 2.0 mg/dL (<2.0) 06/07/19 00:10 Ur Leukocyte Esterase Neg (Negative) 06/07/19 00:10 < 1.0 /HPF (0.0-6.0) 06/07/19 00:10 6.0 /HPF (0.0-6.0) 06/07/19 00:10 Few /HPF 06/07/19 00:10 Blood Type O POSITIVE 06/06/19 14:43 Antibody Screen Negative 06/06/19 14:43 Crossmatch See Detail 06/06/19 14:43 Active Medications - Current Medications Current Medications: Generic Name Dose Route Start Last Admin Trade Name Freq PRN Reason Stop Dose Admin Acetaminophen 650 mg 06/06/19 15:39 Tylenol PO Q4H PRN Pain MILD(1-3)/Fever >100.5/ARZOLA Albuterol 2.5 mg 06/06/19 15:39 Proventil IH Q4HRT PRN Shortness Of Breath Amlodipine Besylate 10 mg 06/07/19 10:00 Norvasc PO QDAY [facility] Ascorbic Acid 500 mg 06/07/19 10:00 Vitamin C PO QDAY [facility] Bisacodyl 10 mg 06/06/19 20:31 Dulcolax VA QDAY PRN Constipation Cyclobenzaprine HCl 5 mg 06/06/19 20:48 Flexeril PO Q12H PRN Muscle Spasm Diclofenac Sodium 0.8 applic 06/06/19 22:00 06/06/19 21:47 Diclofenac 1% TP 0.8 applic QID ADRIAN Administration Docusate Sodium 100 mg 06/06/19 22:00 06/06/19 21:48 Colace PO 100 mg BID ADRIAN Administration Ferrous Sulfate 325 mg 06/07/19 08:00 Feosol PO TID ADRIAN Folic Acid 1 mg 06/07/19 10:00 Folvite PO DAILY ADRIAN Gabapentin 800 mg 06/06/19 22:00 06/07/19 06:34 Neurontin PO 800 mg Q8HR ADRIAN Administration Sodium Chloride 1,000 mls @ 100 mls/hr 06/06/19 16:00 06/07/19 02:23 Nacl 0.9% 1000 Ml IV 100 mls/hr DIRECT ADRIAN Administration Ceftriaxone Sodium 1 gm in 50 mls @ 100 mls/hr 06/06/19 21:00 06/06/19 21:46 Rocephin/Ns 1 Gm/50 Ml IV 100 mls/hr Q24H ADRIAN Administration Protocol Sodium Chloride 500 mls @ 0 mls/hr 06/07/19 07:11 Nacl 0.9% 500 Ml IV 06/07/19 14:00 ONCE NR As Directed Ibuprofen 600 mg 06/06/19 15:42 Ibuprofen PO Q8H PRN Pain Miscellaneous Medication 50,000 unit 06/13/19 10:00 Cholecalciferol (Vitamin D3) [Vitamin D3 50,000unit Cap] PO QWEEK ADRIAN Morphine Sulfate 1 mg 06/06/19 15:39 06/06/19 18:33 Morphine IV 1 mg Q4H PRN Administration Pain, Moderate (4-6) Morphine Sulfate 30 mg 06/06/19 20:31 Morphine PO Q4H PRN Pain , Severe (7-10) Multivitamins 1 each 06/07/19 10:00 Theragran Tab PO QDAY [facility] Ondansetron HCl 4 mg 06/06/19 15:39 Zofran IV Q8H PRN Nausea And Vomiting Oxycodone/Acetaminophen 1 tab 06/06/19 15:39 06/06/19 16:25 Percocet 5/325 PO 1 tab Q6H PRN Administration Pain, Moderate (4-6) Polyethylene Glycol 17 gm 06/07/19 10:00 Miralax 3350 PO QDAY [facility] Prednisone 5 mg 06/07/19 10:00 Deltasone PO QDAY [facility] Senna 17.2 mg 06/07/19 10:00 Senokot PO QDAY [facility] Sodium Chloride 10 ml 06/06/19 22:00 06/06/19 21:50 Sodium Chloride Flush Syringe 10 Ml IV 10 ml BID ADRIAN Administration Sodium Chloride 10 ml 06/06/19 15:39 Sodium Chloride Flush Syringe 10 Ml IV PRN PRN LINE FLUSH Thiamine HCl 100 mg 06/07/19 10:00 Vitamin B-1 PO QDAY [facility]
[2019-06-07] MEDS: PERCOCET 5/325 PO PRN (09:37)
[2019-06-07] MEDS ORDERED: NON-FORMULARY (Folic Acid [Folic Acid] 1 TAB) PO SCH (10:00)
[2019-06-07] MEDS ORDERED: NON-FORMULARY (Folic Acid [Folic Acid] 0.4 MG) PO SCH (10:00)
[2019-06-07] MEDS ORDERED: MIRALAX 3350 PO SCH (10:00)
[2019-06-07] MEDS: SENOKOT PO SCH (10:56)
[2019-06-07] MEDS: COLACE PO SCH ×2 (10:56→21:52)
[2019-06-07] MEDS: FEOSOL PO SCH ×3 (10:56→21:52)
[2019-06-07] MEDS: VITAMIN C PO SCH (10:56)
[2019-06-07] MEDS: THERAGRAN Tab PO SCH (10:56)
[2019-06-07] MEDS: VITAMIN B-1 PO SCH (10:57)
[2019-06-07] MEDS: DELTASONE PO SCH (10:57)
[2019-06-07] MEDS: NORVASC PO SCH (10:57)
[2019-06-07] MEDS: FOLVITE PO SCH (10:57)
[2019-06-07] MEDS: DICLOFENAC 1% TP SCH ×4 (10:57→21:51)
[2019-06-07] MEDS: SODIUM CHLORIDE FLUSH SYRINGE 10 ML IV SCH ×2 (11:06→21:54)
[2019-06-07] MEDS ORDERED: MIRALAX 3350 PO PRN (12:20)
[2019-06-07 13:23] LABS: Eosinophils % (Manual) 0 % (0.0-4.3); Myelocytes # (Manual) 0.1 K/mm3; Total Cells Counted 100
[2019-06-07 13:25] LABS: Anisocytosis 1+
[2019-06-07 13:26] LABS: Ovalocytes Few; Platelet Estimate Consistent w Auto; Poikilocytosis 1+; Tear Drop Cells 1+
[2019-06-07] MEDS: MORPHINE PO PRN ×2 (13:42→21:52)
[2019-06-07] MEDS: ROCEPHIN/NS 1 GM/50 ML 1 GM/50 ML BAG IV SCH (21:51)
[2019-06-08 05:33] LABS: Hematocrit 23.1 % (35.5-45.6); Hemoglobin 7.9 gm/dl (11.8-15.2)
[2019-06-08] MEDS: PERCOCET 5/325 PO PRN (05:34)
[2019-06-08] MEDS: NEURONTIN PO SCH ×2 (05:34→16:38)
[2019-06-08] MEDS: NACL 0.9% 1000 ML 1,000 ML IV SCH (05:34)
[2019-06-08] MEDS: VITAMIN C PO SCH (09:51)
[2019-06-08] MEDS: SENOKOT PO SCH (09:51)
[2019-06-08] MEDS: THERAGRAN Tab PO SCH (09:51)
[2019-06-08] MEDS: DELTASONE PO SCH (09:51)
[2019-06-08] MEDS: COLACE PO SCH (09:51)
[2019-06-08] MEDS: NORVASC PO SCH (09:51)
[2019-06-08] MEDS: FEOSOL PO SCH ×2 (09:51→16:39)
[2019-06-08] MEDS: FOLVITE PO SCH (09:51)
[2019-06-08] MEDS: VITAMIN B-1 PO SCH (09:51)
[2019-06-08] MEDS: DICLOFENAC 1% TP SCH ×2 (09:52→16:38)
[2019-06-08] MEDS: SODIUM CHLORIDE FLUSH SYRINGE 10 ML IV SCH (09:52)
--- NOTE | 2019-06-08 15:33 | Discharge Summary ---
Providers - Providers Date of Admission: 06/06/19 15:39 Attending physician: GONZALEZ SEGUNDO MD 06/07/19 19:23 Consult to Wound/ET Nurse [CONS] Routine Reason For Exam: wound eval Primary care physician: DEONTE DE SANTIAGO Hospitalization Condition: Fair Hospital course: 58 YO Male SNF Resident at 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 Pt states that he feels weak. Pt seen and evaluated at [facility] and found to have hgb of 5.8. EMS notified and patient transported to [facility]. Pt seen and evaluated in ED and found to have symptomatic anemia suspected secondary to bone marrow infiltration secondary to prostate cancer. Pt denies fever, chills, CP, Palpitations, productive cough, skin rash, recent ill contacts. Pt admitted to medical floor. Pt initiated on PRBC transfusion in ED. Pt found to have suprapubic tenderness consistent with UTI. Urinalysis pending at time of admission. Pt initiated on empiric antibiotic therapy. Past History Past Medical History: cancer, hypertension Anemia requiring transfusions PRBC transfusion, supportive care, blood count improved after transfusion Alcohol dependence syndrome thiamine, folic acid, multivitamin daily, with stable History of cancer metastatic to bone Continued home pain meds and bowel regimen DVT prophylaxis SCD to BLE while in bed, Disposition: [id number]/TX-[id number] [facility] Time spent for discharge: 33 min Core Measure Documentation - Palliative Care Palliative Care/ Comfort Measures: Hospice Care - Core Measures Any of the following diagnoses?: none Exam - Constitutional Vitals: Temp Pulse Resp BP Pulse Ox 98.6 F 95 H 20 113/65 97 06/08/19 05:03 06/08/19 09:51 06/08/19 05:03 06/08/19 09:51 06/08/19 05:03 General appearance: Present: no acute distress, well-nourished - EENT Eyes: Present: PERRL ENT: hearing intact, clear oral mucosa - Neck Neck: Present: supple, normal ROM - Respiratory Respiratory effort: normal Respiratory: bilateral: CTA - Cardiovascular Heart Sounds: Present: S1 & S2. Absent: rub, click - Extremities Extremities: pulses symmetrical, No edema Peripheral Pulses: within normal limits - Abdominal General gastrointestinal: Present: soft, non-tender, non-distended, normal bowel sounds Male genitourinary: Present: normal - Integumentary Integumentary: Present: clear, warm, dry - Musculoskeletal Musculoskeletal: gait normal, strength equal bilaterally - Psychiatric Psychiatric: appropriate mood/affect, intact judgment & insight - Neurologic Neurologic: CNII-XII intact, moves all extremities Plan Follow up with: PRIMARY CARE, [Referring] - 7 Days Prescriptions: Morphine Sulfate [Morphine Sulfate IR] 30 mg PO Q4H PRN #7 tablet PRN Reason: Pain , Severe (7-10) oxyCODONE /ACETAMINOPHEN [Percocet 5/325 mg] 1 tab PO Q6H PRN #7 tablet PRN Reason: Pain, Moderate (4-6)
[2019-06-08] MEDS: MORPHINE PO PRN (16:50)
[2019-06-08 16:55] VITALS: BP 108/59
[2019-06-11] MEDS ORDERED: VITAMIN D2 PO SCH (10:00)
[2019-06-13] MEDS ORDERED: CHOLECALCIFEROL 50000 UNIT PO SCH (10:00)
== END 2019-06-08 17:38 | DRG 722 ==
LOC: ED 13:37 → 3A 15:39
PROVIDERS: ADMIT Internal Medicine; ATTEND Internal Medicine
PROC: 30233N1 Transfusion of Nonautologous Red Blood Cells into Peripheral Vein, Percutaneous Approach (ICD-10-PCS; principal; 2019-06-06)
DX: C61 Malignant neoplasm of prostate (principal); G82.50 Quadriplegia, unspecified; N39.0 Urinary tract infection, site not specified; C79.51 Secondary malignant neoplasm of bone; I10 Essential (primary) hypertension; D63.0 Anemia in neoplastic disease; F10.20 Alcohol dependence, uncomplicated; Z82.49 Family history of ischemic heart disease and other diseases of the circulatory system; Z79.899 Other long term (current) drug therapy
CPT/HCPCS: 36415; 80053; 81001; 83735; 85007; 85014; 85018; 85025; 85610; 85730; 86850; 86900; 86901; 86920; 87116; 96374; 96375; 99291; G0378; J0696; J1200; J2270; J7030; J7040; J7512; P9040